=== PATIENT | male | born 1975 | race Caucasian/White ===

== ENCOUNTER 2017-05-25 09:06 | Emergency (ER) | payer BC, MEDICAID ==
[~2017-05-25] VITALS: Ht 165.1 cm; Wt 60.0 kg
[2017-05-25 09:08] VITALS: Ht 165.1 cm; Wt 60.0 kg
[2017-05-25] MEDS ORDERED: ONDANSETRON (ODT) 4 MG TAB ODT STA (09:23)
[2017-05-25] MEDS ORDERED: HYDROmorphONE 1 MG/ML SYG IM STA (09:23)
[2017-05-25] MEDS ORDERED: HYDR-902 PO (09:46)
[2017-05-25] MEDS ORDERED: IBUP800T25 PO (09:46)
--- NOTE | 2017-05-25 09:50 | ERD ---
ER Documentation Chief Complaint Date/Time DATE: 05/25/17 TIME: 09:48 Chief Complaint Right inguinal hernia is a 41-year-old male who says he had a right inguinal hernia for 2 years. He said last night he was having a bowel movement and was straining hard when he was pushing he felt a sudden pop in his right groin and his right inguinal hernia got larger. He has no abdominal pain no nausea or vomiting. He just has pain in his right inguinal region. The pain is nonradiating described as sharp and worse with walking ROS All systems reviewed and are negative except as per history of present illness. Medications Home Meds Active Scripts Ibuprofen* (Motrin*) 800 Mg Tab, 800 MG PO Q6H Y for PAIN AND OR ELEVATED TEMP, #30 TAB Prov:JAVAN GOMEZSTDARNELLS A. DO 05/25/17 Hydrocodone/Acetaminophen (Sarita 10-325 Tablet) 1 Each Tablet, 1 TAB PO Q6H Y for PAIN, #20 TAB Prov:LEJAVAN MORATAYASTOLOS A. DO 05/25/17 Allergies Allergies: Coded Allergies: No Known Allergy (Unverified , 05/25/17) PMhx/Soc Medical and Surgical Hx: pt denies Surgical Hx History of Surgery: No Anesthesia Reaction: No Hx Neurological Disorder: No Hx Respiratory Disorders: No Hx Cardiac Disorders: No Hx Psychiatric Problems: No Hx Miscellaneous Medical Probl: Yes (INGUINAL HERNIA) Hx Alcohol Use: No Hx Substance Use: No Hx Tobacco Use: No Smoking Status: Never smoker FmHx Family History: No coronary disease Physical Exam Vitals Vital Signs Date Time Temp Pulse Resp B/P Pulse Ox O2 Delivery O2 Flow Rate FiO2 05/25/17 09:08 98.1 73 18 98/67 100 Physical Exam Const: Well-developed, well-nourished Head: Atraumatic, normocephalic Eyes: Normal Conjunctiva, PERRLA, EOMI, normal sclera, no nystagmus ENT: Normal External Ears, Nose and Mouth, moist mucus membranes. Neck: Full range of motion. No meningismus, no lymphadenopathy. Resp: Clear to auscultation bilaterally, no wheezing, rhonchi, rales Cardio: Regular rate and rhythm, no murmurs, S1 S2 present Abd: Soft, non tender x 4, non distended. Normal bowel sounds, no guarding or rebound, no pulsitile abdominal masses or bruits : Moderate to large size right inguinal hernia. Is tender to palpation because it is acute, no skin erythema, testicle is nontender Skin: No petechiae or rashes, no ecchymosis , no maculopapular rash Back: No midline or flank tenderness Ext: No cyanosis, or edema, FROM x 4, normal inspection, neurovascularly intact x 4 Neur: Awake and alert, STR 5/5 x 4, sensation intact x 4, no focal findings, cerebellum intact Psych: Normal Mood and Affect Results 24 hrs Current Medications Medications (Trade) Dose Ordered Sig/Cole Route PRN Reason Start Time Stop Time Status Last Admin Dose Admin Hydromorphone HCl (Dilaudid) 1 mg ONCE STAT IM 05/25/17 09:23 05/25/17 09:24 DC 05/25/17 09:45 Ondansetron HCl (Zofran Odt) 4 mg ONCE STAT ODT 05/25/17 09:23 05/25/17 09:24 DC 05/25/17 09:45 Procedures/MDM Patient is an acute worsening of his right inguinal hernia. There is no signs of bowel obstruction because the patient has no abdominal pain nausea or vomiting. It makes sense is inguinal hernia is tender because it is acutely formed/gotten larger. Discussed warning signs with him he needs to follow-up with general surgery for repair. The patient does have health insurance Departure Diagnosis: Primary Impression: Right inguinal hernia Condition: Stable Patient Instructions: Hernia, Inguinal () Referrals: KHURRAM COLE APOSTOLOS A. DO May 25, 2017 09:50
[2017-05-25 10:25] VITALS: BP 110/78; PULSE 63; RESP 17
== END 2017-05-25 10:25 | disposition home or self-care (01) ==
LOC: E/R 09:06
DX: K40.90 Unilateral inguinal hernia, without obstruction or gangrene, not specified as recurrent (principal)
CPT/HCPCS: 93005; 96372; J1170